=== PATIENT | female | born 1985 | race Caucasian/White ===

== ENCOUNTER 2020-01-09 06:11 | Day surgery (SDC) | payer OTHER ==
[~2020-01-09] VITALS: Ht 157.5 cm; Wt 91.6 kg
[2020-01-09 06:19] VITALS: BP 128/92
[2020-01-09 10:46] VITALS: BP 109/65
== END 2020-01-09 10:00 | disposition home or self-care (01) ==
LOC: DS 06:11 → OR 07:30 → DS 07:30
DX: N87.0 Mild cervical dysplasia (principal); Z98.84 Bariatric surgery status; Z98.890 Other specified postprocedural states
CPT/HCPCS: J0690; J2250